=== PATIENT | male | born 1990 | race Caucasian/White ===

== ENCOUNTER 2016-09-08 06:15 | Emergency (ER) | payer SELFPAY ==
[~2016-09-08] VITALS: Ht 175.3 cm; Wt 118.0 kg
[2016-09-08 06:19] VITALS: BP 143/91
== END 2016-09-08 06:45 | disposition left against medical advice (07) ==
LOC: ED 06:38
DX: F10.220 Alcohol dependence with intoxication, uncomplicated (principal)
CPT/HCPCS: 99283